=== PATIENT | male | born 1975 | race American Indian/Alaskan Native ===

== ENCOUNTER 2020-05-27 20:09 | Emergency (ER) | payer MEDICAID | END 2020-05-27 20:37 | disposition left against medical advice (07) | LOC: DL.ED 20:09 | DX: Z53.21 Procedure and treatment not carried out due to patient leaving prior to being seen by health care provider (principal) ==

== ENCOUNTER 2020-05-28 00:29 | Emergency (ER) | payer MEDICAID ==
[2020-05-28] MEDS ORDERED: Lidocaine 1% 30 ML SDV INJECT ONE (00:45)
[2020-05-28] MEDS ORDERED: Bacitracin Oint 1 GM U/D Packet TOP ONE (00:45)
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
== END 2020-05-28 01:13 ==
LOC: DL.ED 00:29
DX: S01.112A Laceration without foreign body of left eyelid and periocular area, initial encounter (principal); W50.0XXA Accidental hit or strike by another person, initial encounter
CPT/HCPCS: 12011; 99284; J2001